=== PATIENT | male | born 1990 | race Caucasian/White ===

== ENCOUNTER → 2022-10-02 | Outpatient (CLI) | payer OTHER | LOC: RAD 08:31 | PROVIDERS: ATTEND Internal Medicine | DX: R51.9 Headache, unspecified (principal); I11.0 Hypertensive heart disease with heart failure; R73.01 Impaired fasting glucose; F33.1 Major depressive disorder, recurrent, moderate; E78.2 Mixed hyperlipidemia; F43.12 Post-traumatic stress disorder, chronic; G47.30 Sleep apnea, unspecified; R21 Rash and other nonspecific skin eruption; Z72.0 Tobacco use | CPT/HCPCS: 93306 ==